=== PATIENT | male | born 1975 | race Caucasian/White ===

== ENCOUNTER → 2017-06-12 | Outpatient (CLI) | payer OTHER ==
[~2017-06-12] MED LIST: ACET50TA PO; DEPAKOTE PO; DOCU10ELUD PO; PERCOCET PO
--- NOTE | 2017-06-12 10:46 | REP ---
MRI THORACIC SPINE WITHOUT CONTRAST: HISTORY: Mid back pain. A small central disc protrusion is present at the T3-4 level. There is minimal effacement of the thecal sac without spinal cord compression. The T3 neural foramina are patent. There is no other disc bulge or herniation. The remaining neural foramina are patent. The spinal cord is normal in signal intensity. Normal signal intensity is present in the thoracic vertebral bodies. IMPRESSION: Small disc protrusion at the T3-4 level without spinal cord compression. Signed by Ciro Hughes MD 06/12/2017 11:03 A
--- NOTE | 2017-06-12 11:04 | REP ---
MRI LUMBAR SPINE WITHOUT CONTRAST: HISTORY: Back pain. COMPARISON: 03/13/2013. There is partial lumbarization of the S1 vertebral body. Decreased signal intensity on T2-weighted images is present in the L4-5 through S1-2 intervertebral discs. The discs are decreased in height. These findings are consistent with disc degeneration. There is no disc bulge or herniation at the L2-3 level. The L2 nerves exit the neural foramina without compression. A diffuse disc bulge is present at the L3-4 level. There is minimal compression of the thecal sac. The L3 nerves exit the neural foramina without compression. Patient is status post L4-S1 posterior spinal fusion. Medal rods and pedicle screws are present. A diffuse disc bulge is present at the L4-5 level. There is minimal compression of the thecal sac. The L4 nerves exit the neural foramina without compression. A diffuse disc bulge is present at the L5-S1 level. There is minimal compression of the thecal sac. The L5 nerves exit the neural foramina without compression. There is no disc bulge or herniation at the S1-2 level. The S1 nerves exit the neural foramina without compression. The conus medullaris is normal in appearance terminating at the level of the L1-2 intervertebral disc. Normal signal intensity is present in the lumbar vertebral bodies. There is no subluxation. IMPRESSION: 1. Diffuse disc bulge at the L3-4 level with minimal thecal sac compression. 2. The patient is status post L4-S1 posterior spinal fusion. There is anatomic alignment of the lumbar spine. The postoperative change is a new finding. Signed by Ciro Hughes MD 06/12/2017 11:08 A
== END ==
LOC: M RAD 08:37
PROVIDERS: ATTEND Family Medicine
DX: M51.26 Other intervertebral disc displacement, lumbar region (principal); M51.24 Other intervertebral disc displacement, thoracic region; Z98.1 Arthrodesis status

== ENCOUNTER → 2017-08-17 | Outpatient (REF) | payer OTHER | LOC: M LABDRAW1 10:53 | PROVIDERS: ATTEND Physical Medicine & Rehabilitation | DX: Z01.818 Encounter for other preprocedural examination (principal); M47.896 Other spondylosis, lumbar region ==

== ENCOUNTER → 2017-08-22 | Outpatient (CLI) | payer OTHER | LOC: M LAB 14:11 | PROVIDERS: ATTEND Physical Medicine & Rehabilitation | DX: M47.896 Other spondylosis, lumbar region (principal) ==

== ENCOUNTER → 2019-03-25 | Outpatient (CLI) | payer OTHER ==
[~2019-03-25] MED LIST changes: -ACET50TA PO; -DOCU10ELUD PO; +DOCU5LIQ PO; +MAPA500T17 PO; +OXYC1TAB23 PO; -PERCOCET PO
--- NOTE | 2019-03-25 18:31 | REP ---
SCROTAL ULTRASOUND: Real-time sonographic evaluation of the scrotum and contents are performed. Testicles are normal in size and echotexture, Right testicle measuring 4.6 x 2.6 x 3.2 cm. Left testicle 4.2 x 2.1 x 3.4 cm. There is no testicular mass or torsion. Blood flow is seen in each testicle with duplex Doppler evaluation, RI right testicle 0.65 and left testicle 0.59. Tiny hydroceles are present. IMPRESSION: No testicular mass or torsion. Electronically Signed by Sage Marroquin MD 03/26/2019 05:26 P
== END ==
LOC: M RAD 16:10
PROVIDERS: ATTEND Surgery
DX: D40.12 Neoplasm of uncertain behavior of left testis (principal); N50.812 Left testicular pain

== ENCOUNTER → 2019-08-28 | Outpatient (CLI) | payer OTHER ==
--- NOTE | 2019-08-28 11:46 | REP ---
Three views left shoulder: 08/28/2019. Indication: Left shoulder pain. Comparison: None. Findings: There is no acute fracture, subluxation or dislocation. The visualized lung is clear. No lytic or blastic lesions are present. Impression: No acute osseous left shoulder injury. Electronically Signed by Kaiden Baca DO 08/28/2019 11:38 A
== END ==
LOC: M LRY 11:24
PROVIDERS: ATTEND Family Medicine
DX: M25.512 Pain in left shoulder (principal)
CPT/HCPCS: 73030; 90471; 90682; G0463

== ENCOUNTER → 2020-01-28 | Outpatient (CLI) | payer OTHER ==
--- NOTE | 2020-01-28 19:00 | REP ---
CT study of the cervical spine without contrast: History: Cervical radiculopathy. No comparison cervical spine imaging. Technique: Helical scanning is acquired and overlapping 2 mm high resolution axial images were generated and reviewed at bone and soft tissue window settings. Coronal and sagittal multiplanar re-formations images are generated. CT findings: There is no evidence of cervical spine element fracture. No skull base fracture is seen. Cervical vertebral body heights are preserved. Alignment is normal. Facet joints are normally aligned bilaterally at each cervical level on multiplanar re-formations images. There is no evidence of intraspinal or paraspinal hematoma. No extra vertebral abnormality is seen. There is mild degenerative disc disease with anterior discogenic spurring at the C4-5 disc level. There is no evidence of disc herniation. There is some discogenic spurring at C 67 and mild right-sided uncovertebral spurring is seen. Mild diffuse disc. Disc bulging is seen at C5-6. There is a suggestion of a central disc protrusion at C5-6. There is mild left-sided uncovertebral spurring at C3-4. Impression: Degenerative spondylosis changes with discogenic spurring and uncovertebral spurring as above. There is evidence of a central disc protrusion at C5-6. Diffuse disc bulging at C6-C7 and C4-5. Otherwise negative CT study of the cervical spine without contrast. Electronically Signed by Jesus Mak MD 01/28/2020 06:51 P
== END ==
LOC: M RAD 13:24
PROVIDERS: ATTEND Family Medicine
DX: M54.12 Radiculopathy, cervical region (principal)

== ENCOUNTER → 2020-02-25 | Outpatient (CLI) | payer OTHER ==
--- NOTE | 2020-02-25 15:26 | REPVR ---
PROCEDURE INFORMATION: Exam: MR Cervical Spine Without Contrast Exam date and time: 02/25/2020 1:49 PM Age: 44 years old Clinical indication: Other: Cervical disc degeneration R/O stenosis vs ddd TECHNIQUE: Imaging protocol: Multiplanar magnetic resonance images of the cervical spine without contrast. COMPARISON: CT Spine,cervical w/o contrast 01/28/2020 1:42 PM FINDINGS: Vertebrae: Anatomic alignment. No acute fracture seen. There is likely a component of uplifting/thickening of the posterior longitudinal ligament diffusely between the C5 and C7 levels. Spinal cord: Normal signal. There is disc desiccation throughout. Mild disc height loss at C6-C7. Mild prevertebral spondylosis from C3-C4 through C6-C7. C2-C3: No stenoses. C3-C4: Mild disc bulge does not contribute to central spinal stenosis. Left uncovertebral arthropathy causing mild left neural foraminal stenosis. The right neural foramen is patent. C4-C5: The central spinal canal is patent. Right uncovertebral arthropathy causing [id number] right neural foraminal stenosis. No significant left neural foraminal narrowing. C5-C6: 4 mm central disc protrusion with high-intensity zone. There is mild posterior ligamentum flavum buckling. The disc protrusion indents ventral cervical cord without contributing to cord myelopathy. Central spinal canal stenosis is moderate. No significant foraminal stenoses. C6-C7: Mild disc osteophyte complex and ligamentum flavum buckling. There is a cranially migrating left lateral canal disc extrusion which measures approximately 6 mm in AP dimension and extends 6 mm above the disc space, image 6 series 301. Disc material indents left ventral cord without contributing to cord myelopathy. Central spinal canal stenosis is moderate. Left lateral canal stenosis is severe; disc material is in the region of the left C7 nerve rootlets. Mild uncovertebral arthropathy does not contribute to significant foraminal stenoses. C7-T1: No stenoses. Vertebral arteries: Expected flow voids in the vertebral arteries. Soft tissues: Unremarkable. IMPRESSION: 1. A left lateral canal disc extrusion at C6-C7 may be cause of left C7 distribution radiculopathy. Central spinal canal stenosis is moderate. 2. A central disc protrusion at C5-C6 causes moderate central spinal canal stenosis. Electronically signed by: Katie Nelson On 02/25/2020 15:26:17 PM
== END ==
LOC: M RAD 13:25
PROVIDERS: ATTEND Physician Assistant
DX: M50.30 Other cervical disc degeneration, unspecified cervical region (principal)

== ENCOUNTER → 2020-05-22 | Outpatient (CLI) | payer OTHER ==
[~2020-05-22] MED LIST changes: +BUPR-368 PO; +BUPR75TA99 PO; +NEUR100C PO
== END ==
LOC: M LABSMTC 10:42
PROVIDERS: ATTEND Anesthesiology
DX: Z01.812 Encounter for preprocedural laboratory examination (principal); Z20.828 Contact with and (suspected) exposure to other viral communicable diseases
CPT/HCPCS: C9803; U0003

== ENCOUNTER 2020-05-27 09:27 | Inpatient (IN) | payer OTHER ==
--- NOTE | 2020-05-23 21:46 | HPE ---
DATE OF ANTICIPATED ADMISSION: 05/27/2020 ATTENDING PHYSICIAN: Dr. John Paul Giles CHIEF COMPLAINT: Neck pain with left-sided upper extremity radiculopathy. HISTORY: Patient is a 45-year-old male with progressively worsening neck and left upper extremity radiculopathy. He failed to improve with conservative treatment. He continues to have symptoms with activities of daily living. He consented for an elective anterior cervical discectomy and fusion procedure at C5-6 and C6-[address] Giles for his continued symptoms. CURRENT MEDICATIONS: Wellbutrin 300 mg daily MEDICATIONS ALLERGIES: There are no known drug allergies. CHRONIC MEDICAL CONDITIONS: 1. Mood disorder. 2. Chronic back pain. PAST SURGICAL HISTORY: 1. Lumbar fusion. 2. Bilateral inguinal hernia repairs. SOCIAL HISTORY: Patient does not use tobacco and rarely uses alcohol. REVIEW OF SYSTEMS: Patient denies fever, chills, nausea, vomiting, or diarrhea. Denies chest pain, shortness of breath, lightheadedness, dizziness, or headaches. Denies any recent upper respiratory or urinary tract infection symptoms. He denies any abdominal pain. He does continue to have neck and left upper extremity radicular pain. PHYSICAL EXAMINATION: GENERAL: Well-nourished, well-developed male in no apparent distress. He is alert, oriented, and cooperative. Mood and affect are appropriate. VITAL SIGNS: Height 5 feet 9 inches, weight 175 pounds, temperature 97.2, blood pressure 124/76, heart rate 62, respirations 18. HEART: Regular rate and rhythm. LUNGS: Clear to auscultation bilaterally. Breathing is regular and nonlabored. ABDOMEN: Bowel sounds are present. Abdomen is soft and nontender. MUSCULOSKELETAL: There is mild pain noted along the cervical spine. No wide- based gait or clonus. There is a positive Spurling's test for discomfort radiating into the left upper extremity. Muscle strength in the bilateral upper extremities is 5/5, and he does have full motion. He has a negative Simms's test. Deep tendon reflexes are trace at the triceps on the left, 1 triceps on the right, trace biceps bilaterally, trace brachialis bilaterally. IMAGING: MRI of the cervical spine shows a left lateral canal disc extrusion at C6, C7. May be the cause of left C7 distribution radiculopathy. Central spinal canal stenosis is moderate. There is also a central disc protrusion at C5-6 causing moderate central spinal canal stenosis. IMPRESSION: Cervical spinal stenosis and neural foraminal narrowing at C5-6 and C6-7, producing left upper extremity radiculopathy. PLAN: Patient has consented for an anterior cervical decompression and fusion procedure at C5-6 and C6-[address] Giles for his continued symptoms. He will be nothing by mouth after midnight the night prior to surgery. He will call [facility] the day prior to surgery to get a report time. JACK
[~2020-05-27] VITALS: Ht 175.3 cm; Wt 79.4 kg
[~2020-05-27 09:27] MED LIST changes: +ACETAMINOPHEN 1000MG 100ML IV BTL (OFIRMEV) (J0131 PER 10MG) As Ordered ONE; +BACITRACIN PWD 50,000 UNITS VIAL As Ordered ONE; +CelecoXIB (CeleBREX) 100 MG CAP PO ONE; +HYDROmorphone HCL 2 MG/ML 1ML VIAL (J1170) As Ordered ONE; +KETOROLAC 60MG 2ML VIAL As Ordered ONE; +LIDOCAINE 1% MDV 20ML VIAL SQ PRN; +LIDOCAINE 2% 100MG/5ML SDV (FOR ANES.) As Ordered ONE; +LIDOCAINE W/EPINEPHRINE 1% 20ML VIAL As Ordered ONE; +LR 1,000 ML IV ONE; +MIDAZOLAM INJ 2MG/2ML VIAL (J2250 PER 1MG) As Ordered ONE; +ONDANSETRON 4MG/2ML VIAL As Ordered ONE; +PERCOCET 5MG/325MG TAB PO ONE; +ROCURONIUM BROMIDE 50 MG/5 ML VIAL As Ordered ONE; +SUGAMMADEX SODIUM 500 MG/5 ML VIAL (BRIDION) As Ordered ONE; +THROMBIN SOLN 20,000 UNITS KIT As Ordered ONE; +ceFAZolin SOD 2 GM in IV 1 EA IV ONE; +dexameTHASONE 4 MG/ML 1ML VIAL (J1100 PER 1MG) As Ordered ONE; +fentaNYL 100 MCG/2 ML INJECTION (J3010) As Ordered ONE; +propofoL 200 MG/20 ML VIAL As Ordered ONE
[2020-05-27] MEDS ORDERED: PERCOCET 5MG/325MG TAB As Ordered ONE (10:05)
[2020-05-27] MEDS ORDERED: CelecoXIB (CeleBREX) 100 MG CAP As Ordered ONE (10:05)
[2020-05-27] MEDS ORDERED: ceFAZolin 2 GM/D5W 50 ML IV BAG (J0690 PER 500MG) As Ordered ONE (10:06)
[2020-05-27] MEDS ORDERED: oxyCODONE 5MG TAB PO PRN (14:45)
[2020-05-27] MEDS ORDERED: ONDANSETRON 4MG/2ML VIAL IV PRN (14:45)
[2020-05-27] MEDS ORDERED: fentaNYL 100 MCG/2 ML INJECTION (J3010) IV PRN (14:45)
[2020-05-27] MEDS ORDERED: LR 1,000 ML IV SCH (14:45)
[2020-05-27] MEDS ORDERED: PERCOCET 5MG/325MG TAB PO PRN (15:00)
[2020-05-27] MEDS ORDERED: PROMETHAZINE INJ 25 MG/ML VIAL (J2550) IV PRN (15:00)
[2020-05-27] MEDS ORDERED: D5W/LR 1,000 ML IV SCH (15:00)
[2020-05-27 15:15] VITALS: BP 133/93
[2020-05-27] MEDS ORDERED: HYDROMORPHONE HCL 0.5 MG/ 0.5 ML SYRINGE (J1170 PER 1) IV PRN (15:15)
[2020-05-27 15:45] VITALS: BP 132/94
[2020-05-27 16:15] VITALS: BP 135/86
[2020-05-27] MEDS ORDERED: ceFAZolin SOD 2 GM in IV 1 EA IV ONE (17:00)
[2020-05-27 17:15] VITALS: BP 135/87
[2020-05-27] MEDS: GABAPENTIN 100 MG CAP PO SCH ×2 (17:48→20:50)
[2020-05-27 18:15] VITALS: BP 136/88
[2020-05-27] MEDS: PERCOCET 5MG/325MG TAB PO PRN (19:02)
[2020-05-27 22:00] VITALS: BP_SYST 112; BP_SYST 134; BP_DIAS 54; BP_DIAS 87
[2020-05-28] MEDS: PERCOCET 5MG/325MG TAB PO PRN ×2 (00:08→07:53)
[2020-05-28 06:00] VITALS: BP 124/72
[2020-05-28] MEDS ORDERED: ACETAMINOPHEN 500 MG TAB PO PRN (07:30)
[2020-05-28] MEDS: GABAPENTIN 100 MG CAP PO SCH (07:51)
--- NOTE | 2020-06-08 15:18 | RO ---
DATE OF OPERATION: 05/27/2020 PREOPERATIVE DIAGNOSIS: Cervical spinal stenosis/disk herniations at C5-C6 and C6-C7. POSTOPERATIVE DIAGNOSIS: Cervical spinal stenosis/disk herniations at C5-C6 and C6-C7. PROCEDURE PERFORMED: Anterior cervical diskectomy and fusion procedure for decompression of the thecal sac and nerve roots including end-plate preparation at C5-C6 and C6-C7, application of anterior cervical instrumentation at C5, C6, C7, and use of application of structural allograft for spine surgery at C5-C6 and C6-C7. SURGEON: John Paul Giles MD FARM DEMONSTRATOR: JAMSHID Gonzalez ANESTHESIA: Dr. Beck, General. ESTIMATED BLOOD LOSS: Less than 60 mL. COMPLICATIONS: None. COMPONENTS USED: DePuy SKYLINE 32-mm plate, VG2 structural allograft size 6 x 8, x2, and the appropriate plate screw. INDICATIONS: Discomfort radiating to the left. MRI evidence of cervical stenosis at C5-C6, as well as C6-C7. The patient has elected for operative intervention. Consent reviewed in detail including a thomas discussion of the pathology involved, the procedure proposed, alternatives including doing nothing and risks including, but not limited to, pain, failure, infection, bleeding, blood loss, incomplete relief of symptoms, need for additional surgery, and other issues. The patient agrees to proceed. OPERATIVE COURSE: Identified in the holding area, site and side verified, brought to the operating room. Once anesthesia was administered, head of it in traction 7 pounds was applied. The shoulders were taped to the side. He was sterilely prepped and draped in the usual fashion, once I and the trial paralegal were comfortable with the patient's positioning. Next, I utilized head lamps, loupe magnification. I stood on the patient's right and Mr. Pierre stood on the patient's left. Time-out was accomplished. The incision was outlined with the marking pen based on palpation of the patient's bony and other landmarks, infiltrated with 1% lidocaine with epinephrine, and then made with the 10-blade knife, and developed through skin and subcuticular tissues. The platysma was identified, elevated. I utilized bipolar and tenotomies to divide the platysma. This exposed the sternocleidomastoid muscle. Interestingly, the omohyoid muscles seemed to be high riding in this patient. Dissection continued inferior to the omohyoid. The carotid sheath was identified, protected. Blunt dissection continued down to the prevertebral fascia. I elevated the prevertebral fascia exposing disk annulus and then placed a bayonetted spinal needle in the highest disk that I could reach directly posterior to the omohyoid. Next, cross-table lateral x-ray was obtained and this actually verified the C4-C5 level. Therefore, I marked the C5 vertebral body using the monopolar, removed the bayonetted spinal needle, and continued the dissection inferiorly, exposing C5-C6 and C6-C7. The medial border of the longus colli was elevated. I placed distractor pins across C5-C6. Shadow- Line retractor was placed. Annulotomy was accomplished using the 11-blade. Disk material was removed using pituitaries. Endplate cartilage was removed using curettes. Oval bur was utilized to further contour the endplates and square the uncinate processes. Rasps were utilized through a size 6 x 8. A 6 x 8 sound was utilized and predicated a 6 x 8 graft. Curettes and #2 Kerrisons were utilized to elevate the posterior longitudinal ligament, decompressing the thecal sac. At the C5-C6 level, there was a considerable posterior and central disk herniation and this was removed. Next, once this was accomplished, irrigation was accomplished. Graft was implanted, tamped into place. Distractor pin was removed from C5. The oval bur was utilized to contour the anterior vertebral column there. Next, dissection continued inferiorly exposing C6-C7 and I placed distractor pin at C6-C7, retraction device. After the longus colli was elevated, the Shadow-Line was moved inferiorly. Annulotomy was accomplished with an 11- blade. Disk material was removed using pituitaries. Endplates were similarly prepared as above. A bit more inferior corpus was taken using the oval bur at the C6 level due to the extruded and superiorly migrated nature of the disk appreciable on MRI. Dissection continued posteriorly, squaring the uncinate processes. I then elevated the posterior longitudinal ligament with curettes and removed it using #2 Kerrisons, exposing the thecal sac. There was a small amount of disk material posterior into the left and there was more retrobulging of the PLL to the left. I explored with the nerve hook and a 4-0 Araceli curette in the left lateral recess to make sure there was no additional retrievable material. Next, once this was accomplished, irrigation was accomplished. Rasps were utilized to through a size 6 x 8. A 6 x 8 sound was utilized. The 6 x 8 was felt to fit appropriately. Next, the 6 x 8 VG2 graft was obtained, tamped into place. Next, Mr. Pierre assisted by positioning retractors and I utilized the oval bur at this time, after removal of the distractor pins to contour the intervertebral column to receive the plate. Next, once this was accomplished, I inspected for bleeding and no active bleeding. We irrigated with saline solution. We obtained the 32-mm SKYLINE plate. It fit appropriately. I drilled and placed the appropriate screws. At C6-C7 on the left, the 15-mm standard screw did seem to strip, so I did exchange it for a 14-mm rescue or larger screw. The locking device was engaged. Irrigation was again accomplished. Cross- table lateral x-ray was taken to verify plate placement. The wound retractors were removed. The wound was closed with interrupted stitch. Dermabond applied. Collar applied. The patient was extubated and moved to the recovery room in good condition. JACK
--- NOTE | 2020-06-10 09:09 | REP ---
LIMITED CERVICAL SPINE SERIES: 2 Views HISTORY: Intraoperative imaging. Right side C6-7 and C5-6 disc bulging. FINDINGS: An initial portably obtained cross table view of the cervical spine is time stamped 12:31PM. This demonstrates orotracheal tube in place and monitoring electrodes. An intraoperative probe is seen projecting at the anterior aspect of the C4-5 disc. A second intraoperative cross table lateral portably obtained view of the cervical spine is time stamped 2:00PM. This demonstrates the orotracheal tube in position. Ventral disc plate and fusion plate is seen across the C5-6 and C6-7 disc spaces with interbody fusion in position. MTDD
--- NOTE | 2020-06-15 12:56 | DS ---
DATE OF ADMISSION: 05/27/2020 DATE OF DISCHARGE: 05/28/2020 ATTENDING PHYSICIAN: Dr. Giles. ADMITTING DIAGNOSIS: Cervical spinal stenosis C5-6, C6-7. DISCHARGE DIAGNOSIS: Cervical spinal stenosis C5-6, C6-7; status post anterior cervical decompression and fusion C5-6 and C6-7. OTHER DIAGNOSES: Mood disorder, chronic back pain. HISTORY OF PRESENT ILLNESS: This is a 45-year-old male patient with progressively worsening neck pain and pain to his left upper extremity. He failed to improve with conservative management. He elected for surgery for his persistent symptoms. He was admitted for elective anterior cervical decompression and fusion C5-6 and C6-7. OPERATION PERFORMED: Anterior cervical decompression and fusion C5-6 and C6-7. HOSPITAL COURSE: Patient was admitted on the day of surgery and underwent an anterior cervical decompression and fusion C5-6 and C6-7. This was well tolerated by the patient and without incident. On the day of discharge, he was doing well. He will use oral pain medications for pain control. He will resume his preoperative medications and diet. He was given instructions that include but are not limited to wound monitoring, activity limitations, wear the collar. He will follow-up in our office in 10-14 days for surgical follow-up. Please refer to the medical record for further details. JACK
== END 2020-05-28 09:50 | disposition home or self-care (01) | DRG 473 ==
LOC: M OR 09:27 → EDSTATUS 14:40 → M MS5PR 15:15
PROVIDERS: ADMIT Orthopaedic Surgery; ATTEND Orthopaedic Surgery
PROC: 0RB30ZZ Excision of Cervical Vertebral Disc, Open Approach (ICD-10-PCS; 2020-05-27)
PROC: 0RG20K0 Fusion of 2 or more Cervical Vertebral Joints with Nonautologous Tissue Substitute, Anterior Approach, Anterior Column, Open Approach (ICD-10-PCS; principal; 2020-05-27 11:00)
DX: M48.02 Spinal stenosis, cervical region (principal); M54.12 Radiculopathy, cervical region; Z98.1 Arthrodesis status; F39 Unspecified mood [affective] disorder; Z79.899 Other long term (current) drug therapy

== ENCOUNTER → 2023-08-25 | Outpatient (CLI) | payer OTHER ==
[~2023-08-25] MED LIST changes: -ACETAMINOPHEN 1000MG 100ML IV BTL (OFIRMEV) (J0131 PER 10MG) As Ordered ONE; -BACITRACIN PWD 50,000 UNITS VIAL As Ordered ONE; +BUPR75TA69 PO; -BUPR75TA99 PO; -CelecoXIB (CeleBREX) 100 MG CAP PO ONE; -HYDROmorphone HCL 2 MG/ML 1ML VIAL (J1170) As Ordered ONE; -KETOROLAC 60MG 2ML VIAL As Ordered ONE; -LIDOCAINE 1% MDV 20ML VIAL SQ PRN; -LIDOCAINE 2% 100MG/5ML SDV (FOR ANES.) As Ordered ONE; -LIDOCAINE W/EPINEPHRINE 1% 20ML VIAL As Ordered ONE; -LR 1,000 ML IV ONE; -MIDAZOLAM INJ 2MG/2ML VIAL (J2250 PER 1MG) As Ordered ONE; -ONDANSETRON 4MG/2ML VIAL As Ordered ONE; -PERCOCET 5MG/325MG TAB PO ONE; +PROHANCE 279.3MG/ML 15ML VIAL As Ordered ONE; -ROCURONIUM BROMIDE 50 MG/5 ML VIAL As Ordered ONE; -SUGAMMADEX SODIUM 500 MG/5 ML VIAL (BRIDION) As Ordered ONE; -THROMBIN SOLN 20,000 UNITS KIT As Ordered ONE; -ceFAZolin SOD 2 GM in IV 1 EA IV ONE; -dexameTHASONE 4 MG/ML 1ML VIAL (J1100 PER 1MG) As Ordered ONE; -fentaNYL 100 MCG/2 ML INJECTION (J3010) As Ordered ONE; -propofoL 200 MG/20 ML VIAL As Ordered ONE
== END ==
LOC: M RAD 10:57
PROVIDERS: ATTEND Otolaryngology
DX: K11.20 Sialoadenitis, unspecified (principal)
CPT/HCPCS: 70543; A9576